=== PATIENT | female | born 1955 | race Caucasian/White ===

== ENCOUNTER 2024-04-04 18:03 | Inpatient (IN) | payer MEDICARE, MEDICAID ==
[~2024-04-04] VITALS: Ht 165.1 cm; Wt 74.0 kg
[2024-04-05 00:42] LABS: BASO # 0.1 10^3/uL (0.0-0.2); BASO % 0.8 % (0.0-1.0); EOS # 0.1 10^3/uL (0.0-0.5); EOS % 1.2 % (0.0-3.0); HEMATOCRIT 42.4 % (36.0-47.0); HEMOGLOBIN 14.1 g/dl (12.0-15.5); LYMPH # 2.6 10^3/uL (1.5-5.0); MEAN CORPUSCULAR HEMOGLOBIN 31.5 pg (27.0-33.0); MEAN CORPUSCULAR HGB CONC 33.3 g/dl (32.0-36.5); MEAN CORPUSCULAR VOLUME 94.6 fl (80.0-96.0); MONO # 0.4 10^3/uL (0.0-0.8); MONO % 6.5 % (2.0-8.0); NEUTROPHILS # 3.3 10^3/uL (1.5-8.5); PLATELET COUNT, AUTOMATED 277 10^3/uL (150-450); RED BLOOD COUNT 4.48 10^6/uL (4.00-5.40); WHITE BLOOD COUNT 6.5 10^3/uL (4.0-10.0)
[2024-04-05 01:10] LABS: ETHYL ALCOHOL (ETHANOL) < 0.003 % (0.000-0.010)
[2024-04-05 01:12] LABS: SALICYLATE LEVEL < 3.0 MG/DL (<30)
[2024-04-05 01:13] LABS: ALBUMIN 3.4 G/DL (3.2-5.2); ALKALINE PHOSPHATASE 98 U/L (35-104); ALT/SGPT 17 U/L (7.0-40); AST/SGOT 23 U/L (<34); BILIRUBIN,DIRECT 0.1 MG/DL (<0.4); BILIRUBIN,TOTAL 0.6 MG/DL (0.3-1.2); BLOOD UREA NITROGEN 14 MG/DL (9-23); CALCIUM LEVEL 9.2 MG/DL (8.3-10.6); CARBON DIOXIDE LEVEL 30 MMOL/L (20-31); CHLORIDE LEVEL 105 MMOL/L (98-107); CREATININE FOR GFR 0.67 MG/DL (0.55-1.30); GLOMERULAR FILTRATION RATE > 60.0 (>45); GLUCOSE, FASTING 113 MG/DL (74-106); SODIUM LEVEL 140 MMOL/L (136-145); TOTAL PROTEIN 6.9 G/DL (5.7-8.2)
[2024-04-05] MEDS: NS (Normal Saline) 0.9% 1,000 ML IV ONE (01:47)
[2024-04-05 02:19] LABS: KETONE, URINE AUTO RFX NEGATIVE (NEGATIVE); NITRITE, URINE AUTO RFX NEGATIVE (NEGATIVE); RBC, URINE AUTO RFX 5 /HPF (0-3); SQUAM EPITHELIAL CELL UR AURFX 1 /HPF (0-6)
[2024-04-05 02:34] LABS: FREE T4 0.62 NG/DL (0.89-1.76)
[2024-04-05 02:36] LABS: AMPHETAMINES LEVEL URINE NEGATIVE (NEGATIVE); BARBITURATES URINE NEGATIVE (NEGATIVE); BENZODIAZEPINES URINE NEGATIVE (NEGATIVE); CANNABINOIDS URINE NEGATIVE (NEGATIVE); COCAINE METABOLITE URINE NEGATIVE (NEGATIVE); METHADONE URINE NEGATIVE (NEGATIVE); OPIATES URINE NEGATIVE (NEGATIVE); PHENCYCLIDINE URINE NEGATIVE (NEGATIVE)
[2024-04-05 03:01] LABS: LEUKOCYTE ESTERASE UR AUTO RFX 2+ (NEGATIVE); WBC, URINE AUTO RFX 17 /HPF (0-3)
[2024-04-05] MEDS: LEVOTHYROXINE 100MCG (0.1MG) 5ML SDV PF (SOLUTION FORM) IV ONE (04:11)
[2024-04-05] MEDS: LIOTHYRONINE 25 MCG TAB PO ONE (04:11)
[2024-04-05] MEDS: HYDROCORTISONE 100MG/2ML VIAL IV ONE (04:11)
[2024-04-05] MEDS ORDERED: MOM 30ML SUSPENSION UDC PO PRN (04:20)
[2024-04-05] MEDS ORDERED: DEXTROSE 50% 50ML SYRINGE IV PRN (04:55)
[2024-04-05] MEDS ORDERED: GLUCOSE 4 GM CHEW PO PRN (04:55)
[2024-04-05] MEDS ORDERED: GLUCAGON INJ 1MG VIAL SC PRN (04:55)
[2024-04-05] MEDS ORDERED: ALBUTEROL 90 MCG/ACT 8GM HFA INHALER INH PRN (05:25)
[2024-04-05 06:41] LABS: HEMATOCRIT 39.5 % (36.0-47.0); HEMOGLOBIN 13.2 g/dl (12.0-15.5); MEAN CORPUSCULAR HEMOGLOBIN 31.8 pg (27.0-33.0); MEAN CORPUSCULAR HGB CONC 33.4 g/dl (32.0-36.5); MEAN CORPUSCULAR VOLUME 95.2 fl (80.0-96.0); PLATELET COUNT, AUTOMATED 253 10^3/uL (150-450); RED BLOOD COUNT 4.15 10^6/uL (4.00-5.40); WHITE BLOOD COUNT 6.3 10^3/uL (4.0-10.0)
[2024-04-05 06:58] LABS: ALBUMIN 3.2 G/DL (3.2-5.2); ALKALINE PHOSPHATASE 92 U/L (35-104); ALT/SGPT 16 U/L (7.0-40); AST/SGOT 18 U/L (<34); BILIRUBIN,TOTAL 0.6 MG/DL (0.3-1.2); BLOOD UREA NITROGEN 12 MG/DL (9-23); CALCIUM LEVEL 9.2 MG/DL (8.3-10.6); CARBON DIOXIDE LEVEL 25 MMOL/L (20-31); CHLORIDE LEVEL 106 MMOL/L (98-107); CREATININE FOR GFR 0.63 MG/DL (0.55-1.30); GLOMERULAR FILTRATION RATE > 60.0 (>45); GLUCOSE, FASTING 103 MG/DL (74-106); SODIUM LEVEL 140 MMOL/L (136-145); TOTAL PROTEIN 6.5 G/DL (5.7-8.2)
[2024-04-05] MEDS: INSULIN LISPRO (NovoLOG) PER UNIT SC SCH ×2 (07:30→20:13)
[2024-04-05] MEDS: IPRATROPIUM 0.5MG/ALBUTEROL 2.5MG INH SOL UD 3ML (DUONEB) NEB SCH (07:57)
[2024-04-05] MEDS ORDERED: LEVOTHYROXINE 100MCG (0.1MG) 5ML SDV PF (SOLUTION FORM) IV ONE (08:00)
[2024-04-05] MEDS ORDERED: LIOTHYRONINE 25 MCG TAB PO SCH (09:00)
[2024-04-05] MEDS: LEVOTHYROXINE 100MCG (0.1MG) 5ML SDV PF (SOLUTION FORM) IV SCH (10:25)
[2024-04-05] MEDS: LIOTHYRONINE 25 MCG TAB PO SCH (10:25)
[2024-04-05] MEDS: LIDOCAINE 5% (LIDODERM) PATCH TD SCH (10:26)
[2024-04-05] MEDS: ENOXAPARIN 40MG/0.4ML SYRINGE (J1650 PER 10MG) SC SCH (10:26)
[2024-04-05] MEDS ORDERED: HYDROCORTISONE 100MG/2ML VIAL IV SCH (12:00)
[2024-04-05] MEDS: cefTRIAXone SOD 1 GM in DEXTROSE 5% (D5W) ADV/MINI-BAG 50 ML IV SCH (13:10)
[2024-04-05 13:29] VITALS: BP 139/77; TEMP 97.5; O2SAT 98
[2024-04-05 15:34] VITALS: BP 134/77; TEMP 97.6; O2SAT 99
[2024-04-05 19:33] VITALS: BP 143/65; TEMP 98.1; O2SAT 98
[2024-04-05 23:18] VITALS: BP 162/73; TEMP 97.9; O2SAT 95
[2024-04-06] MEDS ORDERED: IBUPROFEN 400MG TAB PO ONE (01:30)
[2024-04-06] MEDS: ACETAMINOPHEN 325 MG TAB PO ONE (02:40)
[2024-04-06 03:27] VITALS: BP 148/65; TEMP 97.8; O2SAT 98
[2024-04-06] MEDS ORDERED: DICLOFENAC EPOLAMINE 1.3% PATCH TOP SCH (05:25)
[2024-04-06] MEDS: methocarbamoL 500 MG TAB PO ONE (06:01)
[2024-04-06 06:57] LABS: BASO # 0.1 10^3/uL (0.0-0.2); BASO % 0.6 % (0.0-1.0); EOS # 0.1 10^3/uL (0.0-0.5); EOS % 0.9 % (0.0-3.0); HEMATOCRIT 37.4 % (36.0-47.0); HEMOGLOBIN 12.5 g/dl (12.0-15.5); LYMPH % 38.1 % (24.0-44.0); MEAN CORPUSCULAR HGB CONC 33.4 g/dl (32.0-36.5); MEAN CORPUSCULAR VOLUME 95.7 fl (80.0-96.0); MONO # 0.6 10^3/uL (0.0-0.8); MONO % 6.9 % (2.0-8.0); NEUTROPHILS # 4.2 10^3/uL (1.5-8.5); PLATELET COUNT, AUTOMATED 264 10^3/uL (150-450); RED BLOOD COUNT 3.91 10^6/uL (4.00-5.40)
[2024-04-06 07:19] LABS: ALBUMIN 3.1 G/DL (3.2-5.2); ALKALINE PHOSPHATASE 98 U/L (35-104); ALT/SGPT 15 U/L (7.0-40); AST/SGOT 16 U/L (<34); BILIRUBIN,TOTAL 0.5 MG/DL (0.3-1.2); BLOOD UREA NITROGEN 18 MG/DL (9-23); CALCIUM LEVEL 8.9 MG/DL (8.3-10.6); CARBON DIOXIDE LEVEL 29 MMOL/L (20-31); CHLORIDE LEVEL 106 MMOL/L (98-107); CREATININE FOR GFR 0.81 MG/DL (0.55-1.30); GLOMERULAR FILTRATION RATE > 60.0 (>45); GLUCOSE, FASTING 88 MG/DL (74-106); MAGNESIUM LEVEL 1.9 MG/DL (1.8-2.4); POTASSIUM SERUM 4.2 MMOL/L (3.5-5.1); SODIUM LEVEL 142 MMOL/L (136-145); TOTAL PROTEIN 6.4 G/DL (5.7-8.2)
[2024-04-06 07:39] VITALS: BP 177/70; TEMP 97.6; O2SAT 97
[2024-04-06] MEDS ORDERED: IPRATROPIUM 0.5MG/ALBUTEROL 2.5MG INH SOL UD 3ML (DUONEB) NEB PRN (08:00)
[2024-04-06] MEDS: NICOTINE 21MG/24HR 1 EA TRANSDERMAL TD SCH (09:17)
[2024-04-06 11:49] VITALS: BP 156/66; TEMP 97.4; O2SAT 98
[2024-04-06] MEDS: amLODIPine 5 MG TAB PO SCH (12:31)
[2024-04-06] MEDS: ACETAMINOPHEN 650MG ER TAB (TYLENOL ARTHRITIS) PO SCH (15:02)
[2024-04-06 16:00] VITALS: BP 164/71; TEMP 97.6; O2SAT 99
[2024-04-06 20:59] VITALS: BP 136/63; TEMP 97.5; O2SAT 98
[2024-04-07] VITALS (9 sets, daily range): BP systolic 142–199; BP diastolic 70–110; TEMP 96.8–98.8; O2SAT 95–99
[2024-04-07] MEDS: LEVOTHYROXINE 112MCG TABLET (0.112MG) PO SCH (06:40)
[2024-04-07 07:37] LABS: FREE T4 0.95 NG/DL (0.89-1.76); THYROID STIMULATING HORMONE 40.862 uIU/ML (0.55-4.78)
[2024-04-07 07:39] LABS: FREE T3 2.7 PG/ML (2.3-4.2)
[2024-04-07 08:29] LABS: PROCALCITONIN <0.04 ng/ml
[2024-04-07] MEDS: NITROFURANTOIN (MACROBID) 100 MG CAP PO SCH (09:31)
[2024-04-07] MEDS: amLODIPine 5 MG TAB PO ONE (11:27)
[2024-04-07] MEDS: hydrALAZINE 20MG/ML 1ML VIAL IV ONE (16:10)
[2024-04-07] MEDS: LORazepam 2 MG/ML 1ML VIAL IM STA (16:41)
[2024-04-08 04:07] VITALS: BP 151/67; TEMP 96.9; O2SAT 98
[2024-04-08 08:02] VITALS: BP 178/84; TEMP 98.4; O2SAT 98
[2024-04-08] MEDS: ACETAMINOPHEN 325 MG TAB PO PRN (09:39)
[2024-04-08 16:00] VITALS: BP 133/76; TEMP 97.7; O2SAT 99
[2024-04-08] MEDS: LOSARTAN 50MG TABLET PO SCH (20:14)
[2024-04-09 04:18] VITALS: BP 130/64; TEMP 97.8; O2SAT 96
[2024-04-09 07:48] VITALS: BP 157/72; TEMP 98.1; O2SAT 96
[2024-04-09 12:00] VITALS: BP 144/64; TEMP 98.2; O2SAT 98
[2024-04-09 15:29] VITALS: BP 127/61; TEMP 98.1; O2SAT 97
[2024-04-10 03:53] VITALS: BP 159/74; TEMP 98; O2SAT 96
[2024-04-10] MEDS: OLANZapine INTRAMUSCULAR 10MG VIAL IM ONE (06:34)
[2024-04-10] MEDS ORDERED: LORazepam 2 MG/ML 1ML VIAL IM PRN (07:40)
[2024-04-10 07:43] VITALS: BP 131/58; TEMP 98.2; O2SAT 96
[2024-04-10 12:00] VITALS: BP 118/68; TEMP 98; O2SAT 97
[2024-04-10 13:29] LABS: HEMOGLOBIN A1c 5.5 % (4.0-6.0)
[2024-04-10 15:58] VITALS: BP 143/67; TEMP 98.4; O2SAT 97
[2024-04-10 20:09] VITALS: BP 137/62; TEMP 98.1; O2SAT 97
[2024-04-11 07:53] VITALS: BP 166/78; TEMP 97.6; O2SAT 98
[2024-04-11 17:28] VITALS: BP 153/76; TEMP 97.7; O2SAT 97
[2024-04-12 04:00] VITALS: BP 130/53; TEMP 97.5; O2SAT 95
[2024-04-12 12:00] VITALS: BP 116/70; TEMP 97.9; O2SAT 95
[2024-04-12 20:57] VITALS: BP 120/69; TEMP 97.7
[2024-04-13 04:42] VITALS: BP 135/60; TEMP 97.3; O2SAT 95
[2024-04-13 08:00] VITALS: BP 95/43; TEMP 97.5; O2SAT 99
[2024-04-13 20:19] VITALS: BP 132/70; TEMP 97.7; O2SAT 96
[2024-04-14 04:04] VITALS: BP 135/63; TEMP 97.2; O2SAT 94
[2024-04-15 04:07] VITALS: BP 134/67; TEMP 97.3; O2SAT 96
[2024-04-15 04:55] LABS: HEMATOCRIT 36.1 % (36.0-47.0); HEMOGLOBIN 11.8 g/dl (12.0-15.5); MEAN CORPUSCULAR HEMOGLOBIN 31.7 pg (27.0-33.0); MEAN CORPUSCULAR HGB CONC 32.7 g/dl (32.0-36.5); PLATELET COUNT, AUTOMATED 283 10^3/uL (150-450); RED BLOOD COUNT 3.72 10^6/uL (4.00-5.40); WHITE BLOOD COUNT 6.3 10^3/uL (4.0-10.0)
[2024-04-15 05:17] LABS: BLOOD UREA NITROGEN 26 MG/DL (9-23); CALCIUM LEVEL 8.5 MG/DL (8.3-10.6); CARBON DIOXIDE LEVEL 30 MMOL/L (20-31); CHLORIDE LEVEL 108 MMOL/L (98-107); CREATININE FOR GFR 0.92 MG/DL (0.55-1.30); GLOMERULAR FILTRATION RATE > 60.0 (>45); GLUCOSE, FASTING 96 MG/DL (74-106); POTASSIUM SERUM 4.3 MMOL/L (3.5-5.1); SODIUM LEVEL 139 MMOL/L (136-145)
[2024-04-15 05:19] LABS: FREE T4 1.15 NG/DL (0.89-1.76)
[2024-04-15] MEDS ORDERED: KETOROLAC TROMETHAMINE 10 MG TAB PO ONE (23:30)
[2024-04-16] MEDS ORDERED: KETOROLAC 30 MG/ML 1ML VIAL IV ONE
[2024-04-16] MEDS ORDERED: PILL CUTTER 1 EACH XX PRN (00:15)
[2024-04-16] MEDS: traMADol 50 MG TAB PO ONE (00:21)
[2024-04-16 04:17] LABS: APPEARANCE, URINE CLEAR (CLEAR); BACTERIA, URINE AUTO NEGATIVE (NEGATIVE); BILIRUBIN, URINE AUTO NEGATIVE (NEGATIVE); BLOOD, URINE BLOOD 1+ (NEGATIVE); COLOR, URINE STRAW (YELLOW); GLUCOSE, URINE (UA) AUTO NEGATIVE (NEGATIVE); KETONE, URINE AUTO NEGATIVE (NEGATIVE); LEUKOCYTE ESTERASE, URINE AUTO NEGATIVE (NEGATIVE); NITRITE, URINE AUTO NEGATIVE (NEGATIVE); PROTEIN, URINE AUTO NEGATIVE (NEGATIVE); RBC, URINE AUTO 1 /HPF (0-3); SPECIFIC GRAVITY URINE AUTO 1.005 (1.002-1.035); SQUAMOUS EPITHELIAL CELL UR AU 1 /HPF (0-6); UROBILINOGEN, URINE AUTO 0.2 mg/dL (0.0-2.0); WBC, URINE AUTO 0 /HPF (0-3)
[2024-04-16 04:18] VITALS: BP_SYST 117; BP_DIAS 50; BP_DIAS 56; TEMP 97.5; O2SAT 97
[2024-04-17 04:00] VITALS: BP 129/64; TEMP 97.3; O2SAT 97
[2024-04-18 04:11] VITALS: BP 138/88; TEMP 98.1; O2SAT 96
[2024-04-18] MEDS: HALOPERIDOL LACTATE 5MG/ML VIAL IM ONE (23:38)
[2024-04-19 03:30] VITALS: BP 140/63; TEMP 97.5; O2SAT 98
[2024-04-19 04:39] VITALS: O2SAT 87
[2024-04-19 04:41] VITALS: O2SAT 94
[2024-04-19] MEDS: QUEtiapine FUMARATE 25 MG TAB PO SCH (21:21)
[2024-04-20 04:00] VITALS: BP 148/74; TEMP 97.9; O2SAT 97
[2024-04-20 08:08] VITALS: BP 147/75
[2024-04-20] MEDS: LORazepam 2 MG TAB PO PRN (21:21)
[2024-04-21 03:30] VITALS: BP 142/75; TEMP 97.3; O2SAT 95
[2024-04-21] MEDS: LIDOCAINE 5% (LIDODERM) PATCH TD SCH (08:39)
[2024-04-22 05:29] VITALS: BP 133/66; TEMP 97.9; O2SAT 96
[2024-04-23 03:41] VITALS: BP 131/76; TEMP 97.5; O2SAT 97
[2024-04-23 08:28] LABS: FREE T4 1.15 NG/DL (0.89-1.76); THYROID STIMULATING HORMONE 19.681 uIU/ML (0.55-4.78)
[2024-04-23] MEDS: QUEtiapine FUMARATE 50MG TAB PO SCH (20:12)
[2024-04-24 05:05] VITALS: BP 131/60; TEMP 97.7; O2SAT 97
[2024-04-25 03:50] VITALS: BP 156/59; TEMP 97.9; O2SAT 94
[2024-04-25] MEDS ORDERED: ANALGESIC BALM CRM 3OZ TOP PRN (22:50)
[2024-04-26 03:40] VITALS: BP 144/73; TEMP 97.9; O2SAT 94
[2024-04-26] MEDS: methocarbamoL 500 MG TAB PO PRN (05:59)
[2024-04-26] MEDS: ACETAMINOPHEN 650MG ER TAB (TYLENOL ARTHRITIS) PO SCH (11:16)
[2024-04-27 04:50] VITALS: BP 126/62; TEMP 97.7; O2SAT 98
[2024-04-28 03:48] VITALS: BP 140/65; TEMP 97.7; O2SAT 98
[2024-04-29 04:13] VITALS: BP 135/61; TEMP 97.7; O2SAT 94
[2024-04-29] MEDS: ATORVASTATIN 20 MG TAB PO SCH (14:02)
[2024-04-29 21:59] VITALS: BP 158/85
[2024-04-29] MEDS ORDERED: KETOROLAC 30 MG/ML 1ML VIAL IV ONE (23:35)
[2024-04-29] MEDS ORDERED: ANALGESIC BALM CRM 3OZ TOP PRN (23:35)
[2024-04-30] MEDS: NORCO, ANEXSIA 5/325MG TABLET (HYDROcodone/ACETAMINOPHEN) PO ONE (00:10)
[2024-04-30 03:30] VITALS: BP 126/62; TEMP 98.2; O2SAT 97
[2024-05-01 03:20] VITALS: BP 108/49; TEMP 97.9; O2SAT 97
[2024-05-01 16:35] VITALS: BP 118/66
[2024-05-02 06:00] VITALS: BP 164/81; TEMP 98.4; O2SAT 98
[2024-05-03 04:42] VITALS: BP 165/81; TEMP 98.1; O2SAT 97
[2024-05-04 04:44] VITALS: BP 129/50; TEMP 97.5; O2SAT 96
[2024-05-05 03:22] VITALS: BP 126/60; TEMP 97.9; O2SAT 96
[2024-05-06 04:00] VITALS: BP 109/74; TEMP 97.9; O2SAT 95
[2024-05-06 06:27] LABS: FREE T4 1.27 NG/DL (0.89-1.76)
[2024-05-06 20:20] VITALS: BP 151/72; TEMP 98.1; O2SAT 97
[2024-05-07 04:27] VITALS: BP 116/76; TEMP 97.7; O2SAT 99
[2024-05-08 05:42] VITALS: BP 144/59; TEMP 98.1; O2SAT 95
[2024-05-08 20:15] VITALS: BP 134/71; O2SAT 95
[2024-05-09 04:48] VITALS: BP 131/87; TEMP 97.7; O2SAT 99
[2024-05-09] MEDS: COMBIVENT RESPIMAT 100-20MCG INHALER 4GM INH SCH (08:00)
[2024-05-09 08:01] VITALS: BP 145/66
[2024-05-10 04:43] VITALS: BP 128/60; TEMP 98.1; O2SAT 98
[2024-05-10 08:25] VITALS: BP 130/58
[2024-05-11 05:26] VITALS: BP 138/65; TEMP 98.2; O2SAT 95
[2024-05-12 05:13] VITALS: BP 137/62; TEMP 97.9; O2SAT 97
[2024-05-13 04:00] VITALS: BP 152/78; TEMP 97.7; O2SAT 96
[2024-05-14 04:00] VITALS: BP 126/71; TEMP 98.2; O2SAT 95
[2024-05-14] MEDS: NORCO, ANEXSIA 5/325MG TABLET (HYDROcodone/ACETAMINOPHEN) PO ONE (22:59)
[2024-05-15 03:30] VITALS: BP 132/62; TEMP 97.5; O2SAT 97
[2024-05-16 04:52] LABS: HEMATOCRIT 32.9 % (36.0-47.0); HEMOGLOBIN 10.4 g/dl (12.0-15.5); MEAN CORPUSCULAR HGB CONC 31.6 g/dl (32.0-36.5); MEAN CORPUSCULAR VOLUME 98.2 fl (80.0-96.0); PLATELET COUNT, AUTOMATED 268 10^3/uL (150-450); RED BLOOD COUNT 3.35 10^6/uL (4.00-5.40); WHITE BLOOD COUNT 6.5 10^3/uL (4.0-10.0)
[2024-05-16 05:14] LABS: BLOOD UREA NITROGEN 25 MG/DL (9-23); CALCIUM LEVEL 8.7 MG/DL (8.3-10.6); CARBON DIOXIDE LEVEL 28 MMOL/L (20-31); CHLORIDE LEVEL 107 MMOL/L (98-107); GLOMERULAR FILTRATION RATE > 60.0 (>45); GLUCOSE, FASTING 140 MG/DL (74-106); POTASSIUM SERUM 4.3 MMOL/L (3.5-5.1); SODIUM LEVEL 144 MMOL/L (136-145)
[2024-05-16 05:16] LABS: FREE T4 1.13 NG/DL (0.89-1.76); THYROID STIMULATING HORMONE 7.779 uIU/ML (0.55-4.78)
[2024-05-16 05:56] VITALS: BP 140/63; TEMP 97.9; O2SAT 97
[2024-05-16] MEDS: NYSTATIN 100,000 UNITS/GM TOPICAL PWD 15GM TOP SCH (15:17)
[2024-05-17 04:44] VITALS: BP 132/63; TEMP 97.5; O2SAT 97
[2024-05-17] MEDS ORDERED: NALOXONE INJ 0.4MG/1ML VIAL IV PRN (21:35)
[2024-05-17] MEDS ORDERED: PERCOCET 5MG/325MG TAB PO PRN (21:35)
[2024-05-17] MEDS: PERCOCET 5MG/325MG TAB PO PRN (21:48)
[2024-05-18 03:51] VITALS: BP 148/69; TEMP 97.9; O2SAT 95
[2024-05-18] MEDS: ACETAMINOPHEN 650MG ER TAB (TYLENOL ARTHRITIS) PO SCH (15:47)
[2024-05-18] MEDS ORDERED: GABAPENTIN 300 MG CAP PO PRN (18:20)
[2024-05-18] MEDS: GABAPENTIN 300 MG CAP PO SCH (20:11)
[2024-05-19 05:40] VITALS: BP 139/57; TEMP 97.9; O2SAT 94
[2024-05-20 03:40] VITALS: BP 141/60; TEMP 98.1; O2SAT 95
[2024-05-21 05:38] VITALS: BP 137/61; TEMP 97.7; O2SAT 96
[2024-05-21] MEDS: ANALGESIC BALM CRM 3OZ TOP PRN (15:44)
[2024-05-22 03:34] VITALS: BP 142/65; TEMP 97.9; O2SAT 95
[2024-05-23 05:13] VITALS: BP 134/61; TEMP 98.1; O2SAT 97
[2024-05-24 04:20] VITALS: BP 147/63; TEMP 97.9; O2SAT 95
[2024-05-24] MEDS: ACETAMINOPHEN 650MG ER TAB (TYLENOL ARTHRITIS) PO SCH (15:45)
[2024-05-25 05:29] VITALS: BP 135/66; TEMP 97.7; O2SAT 94
[2024-05-26 05:00] VITALS: BP 148/66; TEMP 97.3; O2SAT 95
[2024-05-26] MEDS: oxyCODONE 5MG TAB PO ONE (23:37)
[2024-05-27] MEDS ORDERED: NORCO, ANEXSIA 5/325MG TABLET (HYDROcodone/ACETAMINOPHEN) PO ONE
[2024-05-27 04:01] VITALS: BP 131/60; TEMP 97.5; O2SAT 95
[2024-05-27 15:28] LABS: HEMATOCRIT 33.8 % (36.0-47.0); HEMOGLOBIN 10.8 g/dl (12.0-15.5); MEAN CORPUSCULAR HEMOGLOBIN 30.8 pg (27.0-33.0); MEAN CORPUSCULAR VOLUME 96.3 fl (80.0-96.0); PLATELET COUNT, AUTOMATED 269 10^3/uL (150-450); RED BLOOD COUNT 3.51 10^6/uL (4.00-5.40); WHITE BLOOD COUNT 7.8 10^3/uL (4.0-10.0)
[2024-05-27] MEDS: DOXYCYCLINE HYCLATE 100MG TABLET PO SCH (15:30)
[2024-05-27 15:56] LABS: BLOOD UREA NITROGEN 24 MG/DL (9-23); CALCIUM LEVEL 8.6 MG/DL (8.3-10.6); CARBON DIOXIDE LEVEL 27 MMOL/L (20-31); CHLORIDE LEVEL 107 MMOL/L (98-107); CREATININE FOR GFR 0.79 MG/DL (0.55-1.30); GLOMERULAR FILTRATION RATE > 60.0 (>45); GLUCOSE, FASTING 102 MG/DL (74-106); POTASSIUM SERUM 4.6 MMOL/L (3.5-5.1); SODIUM LEVEL 141 MMOL/L (136-145)
[2024-05-28 04:00] VITALS: BP 134/60; TEMP 97.5; O2SAT 98
[2024-05-29 04:41] VITALS: BP 121/57; TEMP 97.3; O2SAT 97
[2024-05-29] MEDS: CLINDAMYCIN 150MG CAPSULE PO SCH (15:53)
[2024-05-30 03:50] VITALS: BP 123/51; TEMP 97.9; O2SAT 95
[2024-05-31 03:56] VITALS: BP 143/76; TEMP 97.7; O2SAT 96
[2024-06-01 04:07] VITALS: BP 132/57; TEMP 97.9; O2SAT 96
[2024-06-02 04:37] VITALS: BP 132/56; TEMP 97.5; O2SAT 96
[2024-06-03 03:39] VITALS: BP 130/57; TEMP 97.7; O2SAT 98
[2024-06-03 07:30] VITALS: BP 132/58; TEMP 97.7
[2024-06-03 11:54] VITALS: BP 139/60; TEMP 97.7
[2024-06-04 04:00] VITALS: BP 130/46; TEMP 97.9; O2SAT 99
[2024-06-05 03:31] VITALS: BP 168/81; TEMP 97.3; O2SAT 98
[2024-06-05 09:40] LABS: HEMATOCRIT 34.6 % (36.0-47.0); HEMOGLOBIN 11.2 g/dl (12.0-15.5); MEAN CORPUSCULAR HEMOGLOBIN 31.3 pg (27.0-33.0); MEAN CORPUSCULAR HGB CONC 32.4 g/dl (32.0-36.5); MEAN CORPUSCULAR VOLUME 96.6 fl (80.0-96.0); PLATELET COUNT, AUTOMATED 303 10^3/uL (150-450); RED BLOOD COUNT 3.58 10^6/uL (4.00-5.40); WHITE BLOOD COUNT 6.2 10^3/uL (4.0-10.0)
[2024-06-05 10:13] LABS: BLOOD UREA NITROGEN 20 MG/DL (9-23); CALCIUM LEVEL 8.7 MG/DL (8.3-10.6); CARBON DIOXIDE LEVEL 26 MMOL/L (20-31); CHLORIDE LEVEL 105 MMOL/L (98-107); CREATININE FOR GFR 0.79 MG/DL (0.55-1.30); GLOMERULAR FILTRATION RATE > 60.0 (>45); GLUCOSE, FASTING 97 MG/DL (74-106); POTASSIUM SERUM 4.5 MMOL/L (3.5-5.1); SODIUM LEVEL 140 MMOL/L (136-145)
[2024-06-05 10:16] LABS: FREE T4 1.23 NG/DL (0.89-1.76)
[2024-06-06 04:01] VITALS: BP 114/50; TEMP 97.5; O2SAT 95
[2024-06-06 20:58] VITALS: BP 126/69
[2024-06-07 04:39] VITALS: BP 121/45; TEMP 97.7; O2SAT 95
[2024-06-08 04:10] VITALS: BP 136/71; TEMP 97.9; O2SAT 96
[2024-06-08 09:44] LABS: FREE T4 1.13 NG/DL (0.89-1.76)
[2024-06-09 04:00] VITALS: BP 144/67; TEMP 97.6
[2024-06-09 06:10] VITALS: BP 140/63; TEMP 97.9; O2SAT 97
[2024-06-10 03:35] VITALS: BP 138/71; TEMP 97.7; O2SAT 98
[2024-06-10] MEDS: NORCO, ANEXSIA 5/325MG TABLET (HYDROcodone/ACETAMINOPHEN) PO ONE (03:54)
[2024-06-10] MEDS: LEVOTHYROXINE 125MCG TABLET (0.125MG) PO SCH (06:01)
[2024-06-12 00:41] VITALS: BP 146/65; TEMP 97.7; O2SAT 95
[2024-06-12 20:43] VITALS: BP 156/71; TEMP 97.9
[2024-06-13 06:11] VITALS: BP 141/53; TEMP 97.9; O2SAT 95
[2024-06-14 05:49] VITALS: BP 145/70; TEMP 97.9; O2SAT 96
[2024-06-15 05:30] VITALS: BP 135/56; TEMP 97.9; O2SAT 96
[2024-06-16 05:06] VITALS: BP 135/55; TEMP 98.1; O2SAT 96
[2024-06-17 05:27] VITALS: BP 135/59; TEMP 97.9; O2SAT 96
[2024-06-18 06:03] VITALS: BP 162/73; TEMP 97.9; O2SAT 97
[2024-06-18 09:09] LABS: FREE T4 1.22 NG/DL (0.89-1.76)
[2024-06-19 06:25] VITALS: BP 131/53; TEMP 97.7; O2SAT 95
[2024-06-20 05:01] VITALS: BP 130/48; TEMP 97.9; O2SAT 92
[2024-06-20 08:37] LABS: BASO # 0.1 10^3/uL (0.0-0.2); BASO % 1.1 % (0.0-1.0); EOS # 0.1 10^3/uL (0.0-0.5); EOS % 3.1 % (0.0-3.0); HEMATOCRIT 33.1 % (36.0-47.0); HEMOGLOBIN 10.6 g/dl (12.0-15.5); LYMPH # 1.7 10^3/uL (1.5-5.0); LYMPH % 37.4 % (24.0-44.0); MEAN CORPUSCULAR VOLUME 96.8 fl (80.0-96.0); MONO # 0.6 10^3/uL (0.0-0.8); NEUTROPHILS # 2.1 10^3/uL (1.5-8.5); NEUTROPHILS % 46.2 % (36.0-66.0); PLATELET COUNT, AUTOMATED 247 10^3/uL (150-450); RED BLOOD COUNT 3.42 10^6/uL (4.00-5.40); WHITE BLOOD COUNT 4.6 10^3/uL (4.0-10.0)
[2024-06-20 09:09] LABS: BLOOD UREA NITROGEN 17 MG/DL (9-23); CALCIUM LEVEL 8.4 MG/DL (8.3-10.6); CARBON DIOXIDE LEVEL 28 MMOL/L (20-31); CHLORIDE LEVEL 108 MMOL/L (98-107); CREATININE FOR GFR 0.87 MG/DL (0.55-1.30); GLOMERULAR FILTRATION RATE > 60.0 (>45); GLUCOSE, FASTING 82 MG/DL (74-106); POTASSIUM SERUM 4.2 MMOL/L (3.5-5.1); SODIUM LEVEL 144 MMOL/L (136-145)
[2024-06-21 05:40] VITALS: BP 146/63; TEMP 97.7; O2SAT 97
[2024-06-21] MEDS: LEVOTHYROXINE 150MCG TABLET (0.15MG) PO SCH (06:58)
[2024-06-22 05:22] VITALS: BP 130/65; TEMP 97.9; O2SAT 94
[2024-06-23 05:53] VITALS: BP 140/68; TEMP 97.9; O2SAT 96
[2024-06-24 03:55] VITALS: BP 135/63; TEMP 97.9; O2SAT 96
[2024-06-24] MEDS: ANEXSIA, NORCO 7.5MG/325MG TABLET(HYDROCODONE/APAP) PO ONE (06:23)
[2024-06-24] MEDS: methocarbamoL 500 MG TAB PO SCH (10:45)
[2024-06-24] MEDS: GABAPENTIN 100 MG CAP PO SCH (13:40)
[2024-06-25 04:26] VITALS: BP 145/63; TEMP 97.7; O2SAT 97
[2024-06-25 12:00] VITALS: BP 138/76
[2024-06-26 05:38] VITALS: BP 114/54; TEMP 97.7; O2SAT 95
[2024-06-27 06:13] VITALS: BP 152/69; TEMP 97.9; O2SAT 100
[2024-06-27 06:32] LABS: HEMATOCRIT 32.8 % (36.0-47.0); HEMOGLOBIN 10.4 g/dl (12.0-15.5); MEAN CORPUSCULAR HGB CONC 31.7 g/dl (32.0-36.5); MEAN CORPUSCULAR VOLUME 97.9 fl (80.0-96.0); PLATELET COUNT, AUTOMATED 225 10^3/uL (150-450); RED BLOOD COUNT 3.35 10^6/uL (4.00-5.40); WHITE BLOOD COUNT 5.2 10^3/uL (4.0-10.0)
[2024-06-27 06:55] LABS: BLOOD UREA NITROGEN 25 MG/DL (9-23); CALCIUM LEVEL 8.5 MG/DL (8.3-10.6); CARBON DIOXIDE LEVEL 25 MMOL/L (20-31); CHLORIDE LEVEL 108 MMOL/L (98-107); CREATININE FOR GFR 0.95 MG/DL (0.55-1.30); GLOMERULAR FILTRATION RATE > 60.0 (>45); GLUCOSE, FASTING 71 MG/DL (74-106); POTASSIUM SERUM 4.2 MMOL/L (3.5-5.1); SODIUM LEVEL 144 MMOL/L (136-145)
[2024-06-28 06:43] VITALS: BP 168/74; TEMP 97.9; O2SAT 98
[2024-06-29 03:44] VITALS: BP 121/62; TEMP 97.7; O2SAT 96
[2024-06-29 21:20] VITALS: BP 131/83
[2024-06-30 04:32] VITALS: BP 133/66; TEMP 97.5; O2SAT 96
[2024-06-30] MEDS ORDERED: LIDO5TD TD (11:49)
[2024-06-30] MEDS ORDERED: ATOR40TA75 PO (11:49)
[2024-06-30] MEDS ORDERED: LEVO125T4 PO (11:49)
[2024-06-30] MEDS ORDERED: METH-1164 PO (11:49)
[2024-06-30] MEDS ORDERED: NYST1POW3 TOP (11:49)
[2024-06-30] MEDS ORDERED: GABA-1172 PO (11:49)
[2024-06-30] MEDS ORDERED: LOSA-528 PO (11:49)
[2024-06-30] MEDS ORDERED: QUET50TA4 PO (11:49)
[2024-06-30] MEDS ORDERED: HYDR-3363 PO (11:49)
[2024-06-30] MEDS ORDERED: AMLO1TAB25 PO (11:49)
[2024-06-30] MEDS ORDERED: ACE65ERTAB PO (11:49)
[2024-07-01] MEDS ORDERED: LEVOTHYROXINE 125MCG TABLET (0.125MG) PO SCH (06:00)
== END 2024-06-30 14:32 | DRG 643 ==
LOC: M ED 18:03 → M ED INP 04-05 04:17 → M PCU 04-05 13:19 → M MSPAV 04-11 17:27
PROVIDERS: ADMIT Student in an Organized Health Care Education/Training Program; ATTEND Internal Medicine
DX: E03.9 Hypothyroidism, unspecified (principal); G93.41 Metabolic encephalopathy; N39.0 Urinary tract infection, site not specified; E11.9 Type 2 diabetes mellitus without complications; R56.9 Unspecified convulsions; E78.5 Hyperlipidemia, unspecified; J45.909 Unspecified asthma, uncomplicated; I16.0 Hypertensive urgency; K21.9 Gastro-esophageal reflux disease without esophagitis; I11.0 Hypertensive heart disease with heart failure; J44.9 Chronic obstructive pulmonary disease, unspecified; F03.90 Unspecified dementia, unspecified severity, without behavioral disturbance, psychotic disturbance, mood disturbance, and anxiety; F32.A Depression, unspecified; D50.9 Iron deficiency anemia, unspecified; M16.12 Unilateral primary osteoarthritis, left hip; N61.1 Abscess of the breast and nipple; G47.33 Obstructive sleep apnea (adult) (pediatric); Z91.148 Patient's other noncompliance with medication regimen for other reason; M19.90 Unspecified osteoarthritis, unspecified site; Z88.0 Allergy status to penicillin; Z88.8 Allergy status to other drugs, medicaments and biological substances; Z88.6 Allergy status to analgesic agent; Z79.890 Hormone replacement therapy; Z86.73 Personal history of transient ischemic attack (TIA), and cerebral infarction without residual deficits

== ENCOUNTER → 2024-07-26 | Outpatient (REF) | payer MEDICARE, MEDICAID ==
[~2024-07-26] MED LIST: ACE65ERTAB PO; AMLO1TAB25 PO; ATOR40TA75 PO; GABA-1172 PO; HYDR-3363 PO; LEVO125T4 PO; LIDO5TD TD; LOSA-528 PO; METH-1164 PO; NYST1POW3 TOP; QUET50TA4 PO
== END ==
LOC: SKLAB6 14:57
PROVIDERS: ATTEND Internal Medicine
DX: M25.552 Pain in left hip (principal); M16.12 Unilateral primary osteoarthritis, left hip

== ENCOUNTER → 2024-07-28 | Outpatient (REF) | payer MEDICARE, MEDICAID ==
[2024-07-28 08:05] LABS: THYROXINE (T4) 9.7 UG/DL (4.5-10.9)
[2024-07-28 08:06] LABS: THYROID STIMULATING HORMONE 10.877 uIU/ML (0.55-4.78)
== END ==
LOC: SKLAB6 07:00
PROVIDERS: ATTEND Internal Medicine
DX: E03.9 Hypothyroidism, unspecified (principal)

== ENCOUNTER → 2024-08-04 | Outpatient (CLI) | payer MEDICARE | LOC: M RAD 14:42 | PROVIDERS: ATTEND Nurse Practitioner Family | DX: M25.552 Pain in left hip (principal); M25.752 Osteophyte, left hip ==

== ENCOUNTER → 2024-08-11 | Outpatient (REF) | payer MEDICARE | LOC: SKLAB6 07:25 | PROVIDERS: ATTEND Internal Medicine | DX: E55.9 Vitamin D deficiency, unspecified (principal) ==

== ENCOUNTER → 2024-10-06 | Outpatient (REF) | payer MEDICARE ==
[2024-10-06 15:04] LABS: PLATELET COUNT, AUTOMATED 307 10^3/uL (150-450)
[2024-10-06 15:32] LABS: CALCIUM LEVEL 8.7 MG/DL (8.3-10.6); CARBON DIOXIDE LEVEL 26.0 MMOL/L (20-31); CHLORIDE LEVEL 101.0 MMOL/L (98-107); CREATININE FOR GFR 0.89 MG/DL (0.55-1.30); GLOMERULAR FILTRATION RATE 71.0 (>45); POTASSIUM SERUM 4.8 MMOL/L (3.5-5.1); SODIUM LEVEL 139.0 MMOL/L (136-145)
== END ==
LOC: SKLAB7 14:18
PROVIDERS: ATTEND Internal Medicine
DX: I10 Essential (primary) hypertension (principal); R60.9 Edema, unspecified

== ENCOUNTER → 2024-11-04 | Outpatient (REF) | payer MEDICARE ==
[~2024-11-04] MED LIST changes: -ACE65ERTAB PO; +ACET-1593 PO
[2024-11-04 09:03] LABS: FREE T4 1.52 NG/DL (0.89-1.76)
== END ==
LOC: SKLAB6 07:33
PROVIDERS: ATTEND Internal Medicine
DX: E03.9 Hypothyroidism, unspecified (principal)

== ENCOUNTER → 2024-11-18 | Outpatient (REF) | payer MEDICARE | LOC: SKLAB6 14:59 | PROVIDERS: ATTEND Internal Medicine | DX: M16.12 Unilateral primary osteoarthritis, left hip (principal); M81.0 Age-related osteoporosis without current pathological fracture ==

== ENCOUNTER → 2025-01-25 | Outpatient (CLI) | payer MEDICARE | LOC: M RAD 14:52 | PROVIDERS: ATTEND Nurse Practitioner Adult Health | DX: M79.89 Other specified soft tissue disorders (principal) ==

== ENCOUNTER → 2025-02-01 | Outpatient (REF) | payer MEDICARE | LOC: SKLAB8 12:10 | PROVIDERS: ATTEND Family Medicine | DX: M25.552 Pain in left hip (principal); M16.12 Unilateral primary osteoarthritis, left hip ==

== ENCOUNTER 2025-02-03 23:14 | Emergency (ER) | payer MEDICARE ==
[2025-02-03 23:16] VITALS: BP 173/78; TEMP 97.3; O2SAT 97
== END 2025-02-04 00:24 | disposition left against medical advice (07) ==
LOC: M ED 23:14
DX: Z53.21 Procedure and treatment not carried out due to patient leaving prior to being seen by health care provider (principal)

== ENCOUNTER → 2025-02-03 | Outpatient (REF) | payer MEDICARE | LOC: SKLAB6 07:00 | PROVIDERS: ATTEND Nurse Practitioner Adult Health | DX: M25.552 Pain in left hip (principal); W19.XXXA Unspecified fall, initial encounter; Y92.129 Unspecified place in nursing home as the place of occurrence of the external cause; Y93.9 Activity, unspecified; M51.379 Other intervertebral disc degeneration, lumbosacral region without mention of lumbar back pain or lower extremity pain; M48.07 Spinal stenosis, lumbosacral region; M16.0 Bilateral primary osteoarthritis of hip ==

== ENCOUNTER 2025-02-19 08:45 | Inpatient (IN) | payer MEDICARE ==
[~2025-02-19] VITALS: Ht 170.2 cm; Wt 106.6 kg
[2025-02-19 09:26] LABS: BASO # 0.1 10^3/uL (0.0-0.2); BASO % 0.5 % (0.0-1.0); EOS # 0.3 10^3/uL (0.0-0.5); EOS % 2.4 % (0.0-3.0); LYMPH # 1.6 10^3/uL (1.5-5.0); LYMPH % 12.0 % (24.0-44.0); MONO # 0.7 10^3/uL (0.0-0.8); MONO % 5.1 % (2.0-8.0); NEUTROPHILS # 10.7 10^3/uL (1.5-8.5); NEUTROPHILS % 78.9 % (36.0-66.0); PLATELET COUNT, AUTOMATED 349 10^3/uL (150-450)
[2025-02-19] MEDS: NS 500 ML IV ONE (09:33)
[2025-02-19 09:49] LABS: CK-MB VALUE MASS < 1.0 NG/ML (<3.6)
[2025-02-19 09:52] LABS: ALT/SGPT 31 U/L (7.0-40); AST/SGOT 28 U/L (<34); CALCIUM LEVEL 8.8 MG/DL (8.3-10.6); CARBON DIOXIDE LEVEL 28 MMOL/L (20-31); CHLORIDE LEVEL 104 MMOL/L (98-107); CPK CREATINE PHOSPHOKINASE 85 U/L (34-145); CREATININE FOR GFR 0.89 MG/DL (0.55-1.30); GLOMERULAR FILTRATION RATE 70.6 (>45); MAGNESIUM LEVEL 1.9 MG/DL (1.8-2.4); POTASSIUM SERUM 4.5 MMOL/L (3.5-5.1); SODIUM LEVEL 142 MMOL/L (136-145)
[2025-02-19 09:54] LABS: FREE T4 1.68 NG/DL (0.89-1.76)
[2025-02-19 10:53] LABS: CK-MB VALUE MASS < 1.0 NG/ML (<3.6)
[2025-02-19 10:54] LABS: CPK CREATINE PHOSPHOKINASE 79 U/L (34-145)
[2025-02-19] MEDS ORDERED: POTA-149 PO (11:35)
[2025-02-19] MEDS ORDERED: SFHMOMUDC PO (11:35)
[2025-02-19] MEDS ORDERED: RISP-105 PO (11:35)
[2025-02-19] MEDS ORDERED: FURO20TA2 PO (11:35)
[2025-02-19] MEDS ORDERED: GABA-1172 PO (11:35)
[2025-02-19] MEDS ORDERED: CALC600T57 PO (11:35)
[2025-02-19] MEDS ORDERED: RISP0.5T82 PO (11:35)
[2025-02-19] MEDS ORDERED: FAMO1TAB11 PO (11:35)
[2025-02-19] MEDS ORDERED: HOME MED LIST COMPLETE! XX SCH (11:35)
[2025-02-19] MEDS ORDERED: ATOR40TA75 PO (11:35)
[2025-02-19] MEDS ORDERED: ACET-910 PO (11:35)
[2025-02-19] MEDS ORDERED: CELE0.09 PO (11:35)
[2025-02-19] MEDS ORDERED: ERGO125013 PO (11:35)
[2025-02-19] MEDS ORDERED: LOSA50TA28 PO (11:35)
[2025-02-19] MEDS ORDERED: METH-1164 PO (11:35)
[2025-02-19] MEDS ORDERED: SERT50TA29 PO (11:35)
[2025-02-19] MEDS ORDERED: LEVO200T4 PO (11:35)
[2025-02-19] MEDS ORDERED: ASPE4PAD TOP (11:35)
[2025-02-19] MEDS: APIXABAN 5 MG TAB PO SCH (11:40)
[2025-02-19] MEDS: METOPROLOL TART 25 MG TABLET PO SCH (11:41)
[2025-02-19] MEDS: DIGOXIN INJ 0.5 MG/2 ML AMP IV STA (11:43)
[2025-02-19] MEDS: MIDODRINE 5 MG TAB PO SCH (12:00)
[2025-02-19 12:09] LABS: KETONE, URINE AUTO RFX NEGATIVE (NEGATIVE); LEUKOCYTE ESTERASE UR AUTO RFX NEGATIVE (NEGATIVE); MUCUS, URINE RFX SMALL (NEGATIVE); NITRITE, URINE AUTO RFX NEGATIVE (NEGATIVE); RBC, URINE AUTO RFX 0 /HPF (0-3); SQUAM EPITHELIAL CELL UR AURFX 0 /HPF (0-6); WBC, URINE AUTO RFX 0 /HPF (0-3)
[2025-02-19] MEDS ORDERED: DEXTROSE 50% 50 ML SYRINGE IV PRN (12:45)
[2025-02-19] MEDS ORDERED: GLUCAGON INJ 1 MG VIAL SC PRN (12:45)
[2025-02-19] MEDS ORDERED: MOM 30 ML SUSPENSION UDC PO PRN (12:45)
[2025-02-19] MEDS ORDERED: GLUCOSE 4 GM CHEW PO PRN (12:45)
[2025-02-19 13:24] VITALS: BP 174/86; TEMP 99; O2SAT 93
[2025-02-19] MEDS: METOPROLOL 5 MG/5 ML VIAL IV SCH ×2 (13:51→14:54)
[2025-02-19] MEDS: INSULIN LISPRO (NovoLOG) PER UNIT SC SCH ×2 (14:02→21:00)
[2025-02-19] MEDS: dilTIAZem 30 MG TAB PO SCH (14:03)
[2025-02-19] MEDS: ACETAMINOPHEN 325 MG TAB PO SCH (14:03)
[2025-02-19] MEDS: NS (Normal Saline) 0.9% 1,000 ML IV ONE (14:19)
[2025-02-19 14:34] VITALS: BP 171/100
[2025-02-19] MEDS: dilTIAZem 25 MG/5 ML VIAL IV STA (14:43)
[2025-02-19 17:04] VITALS: BP 145/70; TEMP 100.2; O2SAT 94
[2025-02-19] MEDS: METOPROLOL TART 25 MG TABLET PO ONE (17:12)
[2025-02-19] MEDS: RISPERIDONE 1 MG TAB PO SCH (17:12)
[2025-02-19] MEDS: GABAPENTIN 300 MG CAP PO SCH (17:12)
[2025-02-19] MEDS: DIGOXIN INJ 0.5 MG/2 ML AMP IV SCH (18:45)
[2025-02-19 19:35] VITALS: BP 146/81; TEMP 99.7; O2SAT 95
[2025-02-19] MEDS: FAMOTIDINE 20 MG TAB PO SCH (21:17)
[2025-02-19] MEDS: ATORVASTATIN 20 MG TAB PO SCH (21:17)
[2025-02-19 23:56] VITALS: BP 154/101; TEMP 98.2; O2SAT 97
[2025-02-20] VITALS (7 sets, daily range): BP systolic 109–151; BP diastolic 52–82; TEMP 97.4–98.6; O2SAT 93–98
[2025-02-20] MEDS: LEVOTHYROXINE 100 MCG TABLET (0.1 MG) PO SCH (06:12)
[2025-02-20 06:17] LABS: BASO # 0.1 10^3/uL (0.0-0.2); BASO % 0.2 % (0.0-1.0); EOS # 0.0 10^3/uL (0.0-0.5); EOS % 0.0 % (0.0-3.0); LYMPH # 0.8 10^3/uL (1.5-5.0); LYMPH % 3.5 % (24.0-44.0); MONO # 0.4 10^3/uL (0.0-0.8); MONO % 1.6 % (2.0-8.0); NEUTROPHILS # 21.7 10^3/uL (1.5-8.5); NEUTROPHILS % 93.3 % (36.0-66.0); PLATELET COUNT, AUTOMATED 305 10^3/uL (150-450)
[2025-02-20 06:40] LABS: CALCIUM LEVEL 8.2 MG/DL (8.3-10.6); CARBON DIOXIDE LEVEL 29 MMOL/L (20-31); CHLORIDE LEVEL 96 MMOL/L (98-107); CK-MB VALUE MASS < 1.0 NG/ML (<3.6); CPK CREATINE PHOSPHOKINASE 102 U/L (34-145); CREATININE FOR GFR 0.96 MG/DL (0.55-1.30); DIGOXIN LEVEL 1.6 NG/ML (0.8-2.0); GLOMERULAR FILTRATION RATE 64.5 (>45); MAGNESIUM LEVEL 1.8 MG/DL (1.8-2.4); PHOSPHORUS LEVEL 3.5 MG/DL (2.4-5.1); POTASSIUM SERUM 4.2 MMOL/L (3.5-5.1); SODIUM LEVEL 134 MMOL/L (136-145)
[2025-02-20] MEDS: METOPROLOL SUCC. 100 MG *XL* TAB PO ONE (07:16)
[2025-02-20] MEDS: DIGOXIN INJ 0.5 MG/2 ML AMP IV STA ×2 (07:16→12:59)
[2025-02-20] MEDS: SERTRALINE HCL 50 MG TAB PO SCH (08:48)
[2025-02-20] MEDS: MIDODRINE 5 MG TAB PO ONE (08:49)
[2025-02-20] MEDS: dilTIAZem 30 MG TAB PO SCH (12:38)
[2025-02-20] MEDS ORDERED: IPRATROPIUM 0.5 MG/2.5 ML (0.02%) SOLN NEB INH PRN (12:50)
[2025-02-20] MEDS: dilTIAZem 25 MG/5 ML VIAL IV STA (13:07)
[2025-02-20] MEDS: DOXYCYCLINE HYCLATE 100 MG TABLET PO SCH (13:16)
[2025-02-20] MEDS: risperiDONE 0.5 MG TAB PO SCH (13:16)
[2025-02-20] MEDS: IPRATROPIUM 0.5 MG/2.5 ML (0.02%) SOLN NEB INH SCH (13:55)
[2025-02-20] MEDS: LEVALBUTEROL 1.25 MG 0.5ML CONCENTRATE NEB INH SCH (13:55)
[2025-02-21] VITALS (8 sets, daily range): BP systolic 106–161; BP diastolic 54–81; TEMP 97.2–98.6; O2SAT 92–98
[2025-02-21] MEDS: BUDESONIDE 0.5 MG/2 ML INHALATION SUSPENSION NEB SCH (08:22)
[2025-02-21] MEDS: METOPROLOL SUCC. 100 MG *XL* TAB PO SCH (08:35)
[2025-02-21] MEDS: dilTIAZem 30 MG TAB PO ONE (09:55)
[2025-02-21] MEDS: DIGOXIN 0.125 MG TAB PO SCH (12:44)
[2025-02-21] MEDS: LIDOCAINE 5% PATCH TD ONE (13:32)
[2025-02-21] MEDS ORDERED: ANALGESIC BALM CRM 3 OZ TOP SCH (17:00)
[2025-02-21] MEDS: LEVALBUTEROL 1.25 MG 0.5ML CONCENTRATE NEB INH PRN (23:08)
[2025-02-22 03:48] VITALS: BP 113/55; TEMP 98.9; O2SAT 96
[2025-02-22 06:18] LABS: BASO # 0.0 10^3/uL (0.0-0.2); BASO % 0.0 % (0.0-1.0); EOS # 0.0 10^3/uL (0.0-0.5); EOS % 0.0 % (0.0-3.0); LYMPH # 0.8 10^3/uL (1.5-5.0); LYMPH % 3.5 % (24.0-44.0); MONO # 0.5 10^3/uL (0.0-0.8); MONO % 2.2 % (2.0-8.0); NEUTROPHILS # 22.0 10^3/uL (1.5-8.5); NEUTROPHILS % 93.4 % (36.0-66.0); PLATELET COUNT, AUTOMATED 300 10^3/uL (150-450)
[2025-02-22 06:42] LABS: CALCIUM LEVEL 7.9 MG/DL (8.3-10.6); CARBON DIOXIDE LEVEL 25.0 MMOL/L (20-31); CHLORIDE LEVEL 99.0 MMOL/L (98-107); CREATININE FOR GFR 0.79 MG/DL (0.55-1.30); GLOMERULAR FILTRATION RATE 81.4 (>45); MAGNESIUM LEVEL 2.0 MG/DL (1.8-2.4); POTASSIUM SERUM 4.1 MMOL/L (3.5-5.1); SODIUM LEVEL 135.0 MMOL/L (136-145)
[2025-02-22 07:37] VITALS: BP 124/59; TEMP 98; O2SAT 98
[2025-02-22] MEDS: LIDOCAINE 5% PATCH TD SCH (08:18)
[2025-02-22 11:31] VITALS: BP 146/65; TEMP 97.7; O2SAT 96
[2025-02-22] MEDS ORDERED: NS (Normal Saline) 0.9% 1,000 ML IV ONE (13:25)
[2025-02-22] MEDS ORDERED: OLANZapine INTRAMUSCULAR 10MG VIAL IM PRN (15:30)
[2025-02-22 16:00] VITALS: BP 156/74; TEMP 98; O2SAT 97
[2025-02-22] MEDS: OLANZapine 5 MG TAB PO ONE (16:23)
[2025-02-22 20:20] VITALS: BP 160/82; TEMP 97.5; O2SAT 97
[2025-02-23 06:16] LABS: CALCIUM LEVEL 8.2 MG/DL (8.3-10.6); CARBON DIOXIDE LEVEL 26.0 MMOL/L (20-31); CHLORIDE LEVEL 97.0 MMOL/L (98-107); CREATININE FOR GFR 0.79 MG/DL (0.55-1.30); GLOMERULAR FILTRATION RATE 81.4 (>45); MAGNESIUM LEVEL 2.0 MG/DL (1.8-2.4); POTASSIUM SERUM 4.4 MMOL/L (3.5-5.1); SODIUM LEVEL 132.0 MMOL/L (136-145)
[2025-02-23 08:00] VITALS: BP 182/80; TEMP 97.8; O2SAT 100
[2025-02-23 08:59] VITALS: BP 180/82
[2025-02-23 10:44] VITALS: BP 146/72
[2025-02-23] MEDS ORDERED: METO1TAB33 PO (11:40)
[2025-02-23] MEDS ORDERED: ELIQ5TAB PO (11:40)
[2025-02-23] MEDS ORDERED: DIGO0.123 PO (11:40)
[2025-02-23] MEDS ORDERED: PRED10TA2 PO (11:59)
[2025-02-23] MEDS ORDERED: DOXY100T PO (11:59)
[2025-02-23 12:00] VITALS: BP 170/74; TEMP 97.8; O2SAT 99
[2025-02-23 12:36] VITALS: BP 148/64
== END 2025-02-23 13:33 | DRG 309 ==
LOC: M ED 08:45 → EDBD 08:45 → EDSEX 08:45 → M ED INP 11:16 → M PCU 13:18
PROVIDERS: ADMIT General Practice; ATTEND Student in an Organized Health Care Education/Training Program
DX: I48.92 Unspecified atrial flutter (principal); J44.1 Chronic obstructive pulmonary disease with (acute) exacerbation; R65.10 Systemic inflammatory response syndrome (SIRS) of non-infectious origin without acute organ dysfunction; J98.11 Atelectasis; I10 Essential (primary) hypertension; R00.0 Tachycardia, unspecified; E11.51 Type 2 diabetes mellitus with diabetic peripheral angiopathy without gangrene; J45.909 Unspecified asthma, uncomplicated; K21.9 Gastro-esophageal reflux disease without esophagitis; F32.A Depression, unspecified; D64.9 Anemia, unspecified; E78.5 Hyperlipidemia, unspecified; E03.9 Hypothyroidism, unspecified; Z86.73 Personal history of transient ischemic attack (TIA), and cerebral infarction without residual deficits; D72.829 Elevated white blood cell count, unspecified; F41.9 Anxiety disorder, unspecified; K44.9 Diaphragmatic hernia without obstruction or gangrene; Z88.0 Allergy status to penicillin; Z88.8 Allergy status to other drugs, medicaments and biological substances; Z91.040 Latex allergy status; Z88.6 Allergy status to analgesic agent; Z79.899 Other long term (current) drug therapy; I72.2 Aneurysm of renal artery; G47.30 Sleep apnea, unspecified

== ENCOUNTER → 2025-03-15 | Outpatient (REF) | payer MEDICARE ==
[~2025-03-15] MED LIST changes: +ACET-1387 PO; -ACET-1593 PO; +ACET-910 PO; +ASPE4PAD TOP; +CALC600T57 PO; +CELE0.09 PO; +DIGO0.123 PO; +DOXY100T PO; +ELIQ5TAB PO; +ERGO125013 PO; +FAMO1TAB11 PO; +FURO20TA2 PO; +LEVO200T4 PO; +LOSA50TA28 PO; +METO1TAB33 PO; +POTA-149 PO; +PRED10TA2 PO; +RISP-105 PO; +RISP0.5T82 PO; +SERT50TA29 PO; +SFHMOMUDC PO
== END ==
LOC: SKLAB6 13:00
PROVIDERS: ATTEND Family Medicine
DX: Z11.2 Encounter for screening for other bacterial diseases (principal); S31.109A Unspecified open wound of abdominal wall, unspecified quadrant without penetration into peritoneal cavity, initial encounter; S81.802A Unspecified open wound, left lower leg, initial encounter

== ENCOUNTER → 2025-03-15 | Outpatient (REF) | payer MEDICARE | LOC: SKLAB6 10:51 | PROVIDERS: ATTEND Family Medicine | DX: Z11.2 Encounter for screening for other bacterial diseases (principal); Z20.818 Contact with and (suspected) exposure to other bacterial communicable diseases ==

== ENCOUNTER → 2025-04-03 | Outpatient (REF) | payer MEDICARE | LOC: SKLAB6 07:00 | PROVIDERS: ATTEND Nurse Practitioner Adult Health | DX: Z11.2 Encounter for screening for other bacterial diseases (principal); Z20.818 Contact with and (suspected) exposure to other bacterial communicable diseases; S31.109A Unspecified open wound of abdominal wall, unspecified quadrant without penetration into peritoneal cavity, initial encounter ==